=== PATIENT | female | born 1995 | race Asian ===

== ENCOUNTER 2020-12-16 23:25 | Emergency (ER) | payer OTHER ==
[~2020-12-16] VITALS: Ht 170.2 cm; Wt 76.7 kg
[2020-12-16] MEDS ORDERED: CYCLOBENZAPRINE 10 MG TAB PO ONE (23:35)
[2020-12-16] MEDS ORDERED: IBUPROFEN 800 MG TAB PO ONE (23:35)
[2020-12-16 23:43] VITALS: BP 145/98
[2020-12-17] MEDS ORDERED: HYDR-5080 PO (03:13)
[2020-12-17] MEDS ORDERED: CYCL-711 PO (03:13)
[2020-12-17 03:15] VITALS: BP 112/68
== END 2020-12-17 03:15 | disposition home or self-care (01) ==
LOC: MED 23:25 → EEVIPCON 23:25 → MED 12-17 03:15
DX: M54.5 Low back pain (principal); V43.62XA Car passenger injured in collision with other type car in traffic accident, initial encounter; Y93.89 Activity, other specified; Y92.89 Other specified places as the place of occurrence of the external cause; Y99.8 Other external cause status
CPT/HCPCS: 71045; 72050; 72110; 73590; 99284